=== PATIENT | female | born 1980 | race Caucasian/White ===

== ENCOUNTER → 2017-01-06 | Outpatient (CLI) | payer OTHER ==
[2017-01-06 12:24] LABS: CHLORIDE,CL 106 mmol/L (98-110); SODIUM,NA 140 mmol/L (136-146)
== END ==
LOC: MW.CHFP 11:38
PROVIDERS: ATTEND Nurse Practitioner Family
DX: R42 Dizziness and giddiness (principal)
CPT/HCPCS: 36415; 80048; 84443; 85027

== ENCOUNTER 2023-09-16 08:34 | Day surgery (SDC) | payer BC ==
[~2023-09-16 08:34] MED LIST: Albuterol 0.083% 2.5 MG/3 ML Neb Soln NEB PRN; HYDROmorphone 1 MG/ML Syringe IVPUSH PRN; Lactated Ringers 1,000 ML IV SCH; Metoclopramide 10 MG/2 ML SDV IVPUSH PRN; Morphine 2 MG/ML SYRINGE IVPUSH PRN; Naloxone 0.4 MG/ML SDV IVPUSH PRN; Ondansetron 4 MG/2 ML SDV IVPUSH PRN; Sodium Chloride 0.9% 10 ML Syringe FLUSH PRN; Sodium Chloride 0.9% 2.5 ML Syringe FLUSH PRN; Sodium Chloride 0.9% 20 ML SDV IV PRN; droPERidol 5 MG/2 ML SDV IVPUSH PRN; fentaNYL 50 MCG/ML SDV IVPUSH PRN
[2023-09-16] MEDS ORDERED: propofoL 50 ML ONE ×2 (08:51→10:56)
[2023-09-16] MEDS ORDERED: fentaNYL 100 MCG/2 ML SDV ONE (08:57)
[2023-09-16] MEDS ORDERED: Propofol 200 MG/20 ML SDV ONE (08:58)
[2023-09-16] MEDS ORDERED: Rocuronium Bromide 50 MG/5 ML Syringe ONE (09:00)
[2023-09-16] MEDS ORDERED: dexmedeTOMIDine HCl 200 MCG/2 ML SDV ONE (09:00)
[2023-09-16] MEDS ORDERED: Bupivacaine 0.25% 30 ML SDV ONE (09:53)
[2023-09-16] MEDS ORDERED: Ropivacaine 0.5% 5 MG/ML 30 ML SDV ONE (09:53)
[2023-09-16] MEDS ORDERED: ceFAZolin 2 GM Vial ONE (10:37)
[2023-09-16] MEDS ORDERED: Magnesium Sulfate (4.06 MEQ/ML) 5 GM/10 ML SDV ONE (10:37)
[2023-09-16] MEDS ORDERED: Bupivacaine 0.5% 30 ML SDV ONE (10:41)
[2023-09-16] MEDS ORDERED: Ondansetron 4 MG/2 ML SDV ONE (10:48)
[2023-09-16] MEDS ORDERED: Dexamethasone 4 MG/ML 5 ML MDV ONE (10:48)
[2023-09-16] MEDS ORDERED: Ketorolac 30 MG/ML SDV ONE (11:15)
[2023-09-16] MEDS ORDERED: Sugammadex Sodium 200 MG/2 ML VIAL ONE (11:15)
[2023-09-16 13:52] VITALS: BP 107/68; PULSE 41
[2023-09-16] MEDS ORDERED: ceFAZolin 2 GM in Sodium Chloride 0.9% 50 ML IV ONE (16:37)
== END 2023-09-16 13:07 | disposition home or self-care (01) ==
LOC: MW.SDS 08:34
PROVIDERS: ATTEND Surgery
DX: K80.10 Calculus of gallbladder with chronic cholecystitis without obstruction (principal); F41.8 Other specified anxiety disorders; I10 Essential (primary) hypertension; K21.9 Gastro-esophageal reflux disease without esophagitis; E66.9 Obesity, unspecified; Z68.31 Body mass index [BMI] 31.0-31.9, adult; Z79.899 Other long term (current) drug therapy
CPT/HCPCS: 47562; 49591; 64488; 81025; J0131; J0665; J0690; J1100; J1885; J2405; J2704; J2795; J3010; J3475; J3490; J7030; J7120; 00790

== ENCOUNTER 2024-07-27 09:05 | Day surgery (SDC) | payer BC ==
[~2024-07-27 09:05] MED LIST changes: -Albuterol 0.083% 2.5 MG/3 ML Neb Soln NEB PRN; -HYDROmorphone 1 MG/ML Syringe IVPUSH PRN; -Lactated Ringers 1,000 ML IV SCH; -Metoclopramide 10 MG/2 ML SDV IVPUSH PRN; -Morphine 2 MG/ML SYRINGE IVPUSH PRN; -Naloxone 0.4 MG/ML SDV IVPUSH PRN; -Ondansetron 4 MG/2 ML SDV IVPUSH PRN; -droPERidol 5 MG/2 ML SDV IVPUSH PRN; -fentaNYL 50 MCG/ML SDV IVPUSH PRN
[2024-07-27] MEDS: Lactated Ringers 1,000 ML IV SCH (10:19)
[2024-07-27] MEDS ORDERED: propofoL 50 ML ONE ×2 (11:02→11:03)
[2024-07-27] MEDS ORDERED: Phenylephrine HCl In 0.9% NaCl 1 MG/10 ML Syringe ONE (11:14)
[2024-07-27] MEDS ORDERED: fentaNYL 100 MCG/2 ML SDV ONE (11:23)
[2024-07-27 11:48] VITALS: BP 94/58; PULSE 80
== END 2024-07-27 12:15 | disposition home or self-care (01) ==
LOC: MW.SDS 09:05
PROVIDERS: ATTEND Surgery
DX: K52.9 Noninfective gastroenteritis and colitis, unspecified (principal); I10 Essential (primary) hypertension; F41.9 Anxiety disorder, unspecified; Z87.891 Personal history of nicotine dependence; Z79.899 Other long term (current) drug therapy
CPT/HCPCS: 43239; 45380; 81025; J2371; J2704; J3010; J7120; 00813